=== PATIENT | male | born 1975 | race Caucasian/White ===

== ENCOUNTER → 2024-02-03 | Outpatient (CLI) | payer BC ==
[~2024-02-03] MED LIST: CEPHALEXIN500 M1 PO; Gadoterate 5 ML VIAL IV ONE; Iohexol 300 - 10 ML VIAL IV ONE; NORCO 325 MG-51 TAB PO
== END ==
LOC: COL.RAD 08:26
DX: M87.852 Other osteonecrosis, left femur (principal); M87.851 Other osteonecrosis, right femur
CPT/HCPCS: A9575; Q9967